=== PATIENT | female | born 1945 | race African-American/Black ===

== ENCOUNTER 2023-12-30 19:29 | Emergency (ER) | payer BC ==
[~2023-12-30] VITALS: Ht 149.9 cm; Wt 68.0 kg
[2023-12-30 19:55] VITALS: BP 187/88; PULSE 104; RESP 16; TEMP 98.3; O2SAT 98
== END 2023-12-30 20:53 | disposition home or self-care (01) ==
LOC: ER 19:29
DX: I10 Essential (primary) hypertension (principal)
CPT/HCPCS: 99281

== ENCOUNTER 2025-03-08 22:39 | Emergency (ER) | payer BC, MEDICARE ==
[~2025-03-08] VITALS: Ht 157.5 cm; Wt 68.0 kg
[2025-03-08 23:01] VITALS: TEMP 37.2; O2SAT 100
[2025-03-09] MEDS ORDERED: MUPI1OIN4 TP (00:32)
[2025-03-09 01:21] VITALS: BP 158/93; PULSE 98; RESP 16; O2SAT 97
== END 2025-03-09 01:27 | disposition home or self-care (01) ==
LOC: ER 22:39
DX: S90.414A Abrasion, right lesser toe(s), initial encounter (principal); I10 Essential (primary) hypertension; X58.XXXA Exposure to other specified factors, initial encounter; Y93.89 Activity, other specified; Y92.89 Other specified places as the place of occurrence of the external cause; Y99.8 Other external cause status
CPT/HCPCS: 99283